=== PATIENT | female | born 1960 | race Caucasian/White ===

== ENCOUNTER 2025-04-26 11:37 | Emergency (ER) | payer MEDICARE ==
[2025-04-26 11:43] VITALS: BP 162/112; PULSE 128; RESP 22; TEMP 97.9
[2025-04-26] MEDS: HYDROmorphone 1 MG/ML 1 ML SYRINGE IVP STA (11:45)
[2025-04-26 11:46] LABS: Glucose,Whole Blood 138 mg/dL (70-110); Glucose,Whole Blood 59 mg/dL (70-110)
[2025-04-26] MEDS: DIPH,PERTUS(ACELL)TETVAC-LF 0.5 ML VIAL IM ONE (11:54)
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
[2025-04-26 12:02] LABS: Basophils # (A) 0.04 10*3/uL (0.00-0.10); Basophils % (A) 0.5 %; Eosinophils # (A) 0.06 10*3/uL (0.04-0.35); Eosinophils % (A) 0.8 %; HCT 36.1 % (37.2-46.3); HGB 12.4 g/dL (12.0-15.0); Lymphocytes # (A) 3.58 10*3/uL (0.90-5.00); Lymphocytes % (A) 47.0 %; MCH 32.9 pg (27.0-32.0); MCHC 34.3 g/dL (32.0-37.0); MCV 95.8 fL (80.0-97.0); Monocytes # (A) 0.57 10*3/uL (0.20-1.00); Monocytes % (A) 7.5 %; Neutrophils # (A) 3.35 10*3/uL (1.80-7.70); Neutrophils % (A) 44.1 %; Platelet Count 281 10*3/uL (140-440); RBC 3.77 10*6/uL (4.10-5.20); RDW 12.3 % (11.5-14.5); WBC 7.61 10*3/uL (4.50-10.00)
[2025-04-26 12:11] LABS: ALT 18 U/L (4-34); AST 22 U/L (14-36); African American GFR (CKD) >90 (>60 ml/min/1.73 sqM); Albumin 4.6 g/dL (3.5-5.0); Alkaline Phosphatase 44 U/L (38-126); Anion Gap 11 mmol/L; Blood Urea Nitrogen 17 mg/dL (7-17); Calcium 9.6 mg/dL (8.4-10.2); Carbon Dioxide 25 mmol/L (22-30); Chloride 106 mmol/L (98-107); Glucose 140 mg/dL (74-99); Non-African American GFR(CKD) >90 (>60 ml/min/1.73 sqM); Potassium 4.4 mmol/L (3.5-5.1); Sodium 142 mmol/L (137-145); Total Protein 7.1 g/dL (6.3-8.2)
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
[2025-04-26 12:17] LABS: INR 0.9 (<1.2); Partial Thromboplastin Time 20.7 sec (22.0-30.0); Prothrombin Time 10.4 sec (10.0-12.5)
== END 2025-04-26 12:54 ==
LOC: EC 11:37
DX: S82.142B Displaced bicondylar fracture of left tibia, initial encounter for open fracture type I or II (principal); Z91.040 Latex allergy status; Z88.0 Allergy status to penicillin; Z23 Encounter for immunization; W34.00XA Accidental discharge from unspecified firearms or gun, initial encounter
CPT/HCPCS: 36415; 93005; 86900; 86901; 80053; 83605; 84484; 85025; 85610; 85730; 86850; 73551; 73590; 90715; 99285; 90471; 96374; G0480; J1171; 80320